=== PATIENT | female | born 1950 | race Caucasian/White ===

== ENCOUNTER → 2016-11-11 | Outpatient (REF) ==
[~2016-11-11] MED LIST: FOSAMAX 70MG TA70 MG PO; SYNTHROID0.125 MG/T PO
[2016-11-11 10:36] LABS: ALBUMIN 3.7 gm/dL (3.5-5.0); CALCIUM 9.1 mg/dL (8.4-10.2); PHOSPHOROUS 3.3 mg/dL (2.5-4.5)
[2016-11-11 15:57] LABS: CALCIUM 9.5 mg/dL (8.4-10.2); PHOSPHOROUS 2.8 mg/dL (2.5-4.5)
== END ==
LOC: ZMSC 08:57
PROVIDERS: Otolaryngology
DX: Z01.89 Encounter for other specified special examinations (principal)

== ENCOUNTER → 2016-11-12 | Outpatient (REF) ==
[2016-11-12 08:00] LABS: ALBUMIN 3.7 gm/dL (3.5-5.0); CALCIUM 9.5 mg/dL (8.4-10.2); PHOSPHOROUS 2.7 mg/dL (2.5-4.5)
== END ==
LOC: ZMSC 06:38
PROVIDERS: Otolaryngology
DX: Z01.89 Encounter for other specified special examinations (principal)

== ENCOUNTER 2017-01-05 08:04 | Outpatient (RCR) | payer MEDICARE, BC ==
[2016-12-27 10:36] VITALS: BP 125/70; PULSE 72; TEMP 97.8
[2016-12-28 09:03] VITALS: BP 119/67; PULSE 73; TEMP 98.1
[~2017-01-05] VITALS: Ht 162.6 cm; Wt 71.8 kg
[2017-01-07 13:12] LABS: THYROGLOBULIN AB SCREEN <1.8 IU/mL (<4.0); THYROGLOBULIN TUMOR MARKER 11 ng/mL (())
== END 2017-03-27 ==
LOC: COL.RAD
PROVIDERS: Otolaryngology
DX: C73 Malignant neoplasm of thyroid gland (principal)
CPT/HCPCS: A9517; J3240

== ENCOUNTER → 2021-03-30 | Outpatient (CLI) | payer MEDICARE, BC ==
[~2021-03-30] MED LIST changes: +BLUE-EMU LIDOC1 EACH TP; +EFFEXOR XR37.5 MG/CA PO; +NORCO 325 MG-51 TAB PO; +[UNRECOGNIZED DRUG - REMARK]
== END ==
LOC: COL.RAD 12:48
DX: S22.41XA Multiple fractures of ribs, right side, initial encounter for closed fracture (principal); J90 Pleural effusion, not elsewhere classified; J93.9 Pneumothorax, unspecified